=== PATIENT | male | born 2000 | race Two or more races ===

== ENCOUNTER 2020-05-16 19:05 | Emergency (ER) | payer OTHER ==
[~2020-05-16] VITALS: Ht 175.3 cm; Wt 72.7 kg
[2020-05-16] MEDS ORDERED: KETOROLAC 60MG 2ML VIAL IM ONE (20:00)
[2020-05-16] MEDS ORDERED: diazePAM 10MG/2ML SYRINGE (J3360 PER 5MG) IM ONE (20:00)
--- NOTE | 2020-05-16 20:54 | REPVR ---
PROCEDURE INFORMATION: Exam: XR Lumbosacral Spine, 4 or 5 Views Exam date and time: 05/16/2020 8:00 PM Age: 20 years old Clinical indication: Low back pain; Additional info: Severe low back pain TECHNIQUE: Imaging protocol: XR of the lumbosacral spine, 4 or 5 views. COMPARISON: No relevant prior studies available. FINDINGS: Bones/joints: Normal. No acute fracture. Normal alignment. Soft tissues: Unremarkable. Gastrointestinal tract: There is increased feces throughout the colon consistent with constipation. IMPRESSION: 1. There is increased feces throughout the colon consistent with constipation. 2. No acute findings. Electronically signed by: Pritesh Urbina On 05/16/2020 20:54:36 PM
[2020-05-16] MEDS ORDERED: ROBA750T4 PO (21:54)
[2020-05-16] MEDS ORDERED: PRED10TA2 PO (21:54)
[2020-05-16 22:45] VITALS: BP 98/47
== END 2020-05-16 23:03 | disposition home or self-care (01) ==
LOC: M ED 19:05
DX: S39.012A Strain of muscle, fascia and tendon of lower back, initial encounter (principal); X50.0XXA Overexertion from strenuous movement or load, initial encounter; Y92.019 Unspecified place in single-family (private) house as the place of occurrence of the external cause; Y93.E5 Activity, floor mopping and cleaning; Y99.9 Unspecified external cause status
CPT/HCPCS: 72110; 96372; 99284; J1885; J3360